=== PATIENT | female | born 1950 | race Caucasian/White ===

== ENCOUNTER 2017-05-05 09:52 | Day surgery (SDC) | payer OTHER ==
[~2017-05-05] VITALS: Ht 167.6 cm; Wt 74.5 kg
[~2017-05-05 09:52] MED LIST: ASCO500; ASPI81CH; BETA.05TCA; BIOTIN5000 MCG; CHOL10002; CLOB.05TO; CONEST.625; CYAN500; FOLI1; GLUC500; Garlic1 EAC1; LEVSOD50; MAGOXI400; OMEG1CAP30; PYRI100; RISE35; [UNRECOGNIZED DRUG - OTHER]
== END 2017-05-05 12:59 | disposition home or self-care (01) ==
LOC: ORSCSDS 09:52
PROVIDERS: Surgery
PROC: 0DBH8ZX Excision of Cecum, Via Natural or Artificial Opening Endoscopic, Diagnostic (ICD-10-PCS; principal; 2017-05-05 11:30)
DX: Z12.11 Encounter for screening for malignant neoplasm of colon (principal); D12.0 Benign neoplasm of cecum; Z86.010 Personal history of colon polyps; E03.9 Hypothyroidism, unspecified; E78.5 Hyperlipidemia, unspecified; Z79.890 Hormone replacement therapy; Z79.899 Other long term (current) drug therapy
CPT/HCPCS: 88305

== ENCOUNTER → 2021-03-31 | Outpatient (CLI) | payer MEDICARE | END | disposition home or self-care (01) | LOC: LAB SHORT 12:36 | DX: L57.0 Actinic keratosis (principal) | CPT/HCPCS: 88305 ==

== ENCOUNTER → 2023-04-11 | Outpatient (CLI) | payer OTHER | LOC: LAB 15:29 → LAB SHORT 15:29 | DX: L82.0 Inflamed seborrheic keratosis (principal) | CPT/HCPCS: 88305; 88312 ==

== ENCOUNTER 2023-04-25 11:46 | Day surgery (SDC) | payer OTHER ==
[~2023-04-25] VITALS: Ht 167.6 cm; Wt 69.3 kg
[~2023-04-25 11:46] MED LIST changes: +Lactated Ringer's 1,000 ML IV ONE; +propofoL 50 ML IV ONE
[2023-04-25] MEDS ORDERED: ATOR10 (12:01)
[2023-04-25] MEDS ORDERED: OXYB5 (12:01)
[2023-04-25] MEDS ORDERED: TESTOSTERONE60 GM (12:02)
[2023-04-25] MEDS ORDERED: CALCA500S6 (12:02)
[2023-04-25] MEDS ORDERED: OCUVITE BLUE L1 EACH (12:03)
[2023-04-25] MEDS ORDERED: TOCO1000 (12:03)
[2023-04-25] MEDS ORDERED: FISH OIL 1,2001 EAC4 (12:04)
[2023-04-25] MEDS ORDERED: Lactated Ringer's 1,000 ML IV ONE (12:28)
[2023-04-25 14:45] VITALS: BP 128/86
== END 2023-04-25 14:46 | disposition home or self-care (01) ==
LOC: ORSCSDS 11:46
PROVIDERS: Surgery
PROC: 0DBL8ZX Excision of Transverse Colon, Via Natural or Artificial Opening Endoscopic, Diagnostic (ICD-10-PCS; principal; 2023-04-25 13:30)
DX: Z12.11 Encounter for screening for malignant neoplasm of colon (principal); Z86.010 Personal history of colon polyps; D12.3 Benign neoplasm of transverse colon; Z79.899 Other long term (current) drug therapy
CPT/HCPCS: 88305; J2704; J7120